=== PATIENT | female | born 1975 | race Caucasian/White ===

== ENCOUNTER 2018-12-01 05:01 | Day surgery (SDC) | payer BC, OTHER ==
[2018-11-10 14:00] VITALS: BMI 28.8
[2018-12-01] MEDS ORDERED: FERRIC SUBSULFATE 500 ML BOTTLE TP ONE (11:37)
[2018-12-01] MEDS ORDERED: ceFAZolin SODIUM 1 GM VIAL IVPB ONE (11:53)
[2018-12-01] MEDS ORDERED: LIDOCAINE HCL/PF 2% SDV 5ML VIAL ONE (11:55)
[2018-12-01] MEDS ORDERED: PROPOFOL 20 ML ONE (11:55)
[2018-12-01] MEDS ORDERED: MIDAZOLAM HCL 2 MG/2 ML SINGLE DOSE VIAL ONE ×2 (11:56)
[2018-12-01] MEDS ORDERED: ONDANSETRON 4 MG/2 ML VIAL IVPUSH PRN (12:38)
[2018-12-01] MEDS ORDERED: oxyCODONE HCL 5 MG TABLET PO PRN (12:38)
[2018-12-01] MEDS ORDERED: PROMETHAZINE HCL 25 MG/1 ML VIAL IVPUSH PRN (12:38)
[2018-12-01] MEDS ORDERED: ACETAMINOPHEN 325 MG TABLET (FP) PO PRN (12:47)
[2018-12-01] MEDS ORDERED: IBUPROFEN 400 MG TABLET (FP) PO PRN (12:47)
[2018-12-01 14:34] VITALS: BP 125/75; PULSE 65; TEMP 98
--- NOTE | 2018-12-02 09:15 | OP ---
DATE OF OPERATION: 12/01/2018 PREOPERATIVE DIAGNOSIS: High grade squamous epithelial lesion of the cervix. OPERATION: Colposcopy and loop electrosurgical excision procedure. SURGEON: Wilder Agarwal MD ANESTHESIA: General. ANESTHESIOLOGIST: Tad Morris MD DESCRIPTION OF PROCEDURE: While patient was prepped and draped under general anesthesia, first colposcopy was done, and some congestion of the cervix was noticed. After colposcopy was finished with the help of the Lugols and Schiller test, then, immediately loop LEEP was done with currency of the 40 and specimen was removed and sent to Pathology, and endocervical curetting also was done, and small amount of tissue was removed and sent to Pathology. Estimated blood loss was about 5 mL. Patient tolerated the procedure, was sent to the recovery room in good condition. Wilder AGARWAL M.D. [id number]
--- NOTE | 2018-12-05 18:17 | PATH ---
Surgical Pathology Report Patient Name: TRINA MATAMOROS [facility]. Rec. #: [id number] /Age/Gender: 1975 (Age: 43) / F Account: [id number] Location: [facility] SURGICAL Taken: 12/01/2018 Received: 12/01/2018 Reported: 12/05/2018 Physicians: Bebo Dowling M.D. Specimen(s) Received A: ENDOCERVICAL CURETTINGS B: CERVIX LEEP Clinical History High grade Final Diagnosis A. ENDOCERVICAL CURETTINGS, DILATION AND CURETTAGE: FRAGMENTS OF DYSPLASTIC SQUAMOUS MUCOSA WITH LOW AND HIGH GRADE SQUAMOUS INTRAEPITHELIAL LESION (LSIL AND HSIL) AND BENIGN ENDOCERVICAL MUCOSA. B. CERVIX, LOOP ELECTROSURGICAL EXCISION PROCEDURE (LEEP): CERVICAL SQUAMOUS AND ENDOCERVICAL MUCOSA WITH FOCAL HIGH GRADE SQUAMOUS INTRAEPITHELIAL LESION (CERVICAL INTRAEPITHELIAL NEOPLASIA 2/ MASOUD 2) IN A BACKGROUND OF LOW GRADE SQUAMOUS INTRAEPITHELIAL LESION. SURGICAL RESECTION MARGINS: FOCALLY INVOLVED BY HIGH GRADE DYSPLASIA. TRANSFORMATION ZONE: PRESENT. Comment: Part A and B, P16 is strongly and diffusely positive in areas with HSIL with increased proliferative index by Ki-67. Electronically Signed Radha Andrade M.D. Gross Description A. Received in formalin labeled "endocervical curetting," is a 1.0 x 0.8 x 0.3 cm aggregate of reed-red soft tissue fragments admixed with blood-tinged mucous. The formalin is filtered and the specimen is entirely submitted in one cassette. B. Received in formalin labeled "LEEP," are 2 pink-reed, unoriented portions of soft tissue measuring 1.2 x 1.0 x 0.6 cm and 2.7 x 0.7 x 0.3 cm, consistent with portions of cervix. There is no cervical os present. The specimens are partially surfaced by a reed-pink, shiny and glistening mucosa. The specimens are inked green and serially sectioned. The specimen is entirely submitted in 4 cassettes. /12/01/2018 saudi12/01/2018
== END 2018-12-01 14:15 | disposition home or self-care (01) ==
LOC: JASU-SURG 05:01
PROVIDERS: ATTEND Obstetrics & Gynecology
PROC: 0UBC7ZX Excision of Cervix, Via Natural or Artificial Opening, Diagnostic (ICD-10-PCS; principal; 2018-12-01 11:00)
DX: N87.1 Moderate cervical dysplasia (principal)
CPT/HCPCS: 84703; 88305-TC; 88307-TC; 94760